=== PATIENT | female | born 1995 | race Caucasian/White ===

== ENCOUNTER 2018-01-18 20:35 | Emergency (ER) | payer OTHER ==
[~2018-01-18] VITALS: Ht 160 cm; Wt 65.0 kg
[~2018-01-18 20:35] MED LIST: Z.0.BCPILL PO; ZOFR4TAB3 SL
[2018-01-18] MEDS ORDERED: IOHEXOL 350 MG/ML 10 ML VIAL (for RAD DIAG) IVCONTRAST ONE (20:36)
[2018-01-18 20:47] VITALS: BP 128/88; PULSE 77; RESP 16; O2SAT 100
--- NOTE | 2018-01-18 22:08 | PD ---
HPI Chief Complaint: Complaint Time Seen by Provider: 21:47 Travel History International Travel<30 days: No Contact w/Intl Traveler<30days: No Traveled to known affect area: No History of Present Illness HPI 22-year-old female complains of abdominal pain, nausea and dysuria. Patient states that she started having abdominal cramping with nausea for the past 2 weeks. Patient states that his symptom has been intermittent. Patient started having dysuria for the past week. Patient was seen by personal physician 3 days ago and was given prescription for Cipro to be taken twice a day for possible UTI. Patient has an order for ultrasound of the abdomen pending next week. Patient states that the abdominal pain is cramping pain and sharp pain diffuse over the abdomen especially epigastric and lower abdomen. Patient denies any pain radiation. Patient complained of bilateral flank pain and low back pain. Patient denies any vaginal discharge or bleeding. Patient has history of kidney injury in the past and was admitted to intensive care in 2013. Patient states that she had no problems since then. PFSH Past Medical History Cancer: No Diabetes: No Diminished Hearing: No Hepatitis: No Hiatal Hernia: No Immunizations Current: Yes Thyroid Disease: No ?: Not Past Surgical History Other Surgery: Yes (RIGHT BREAST TUMOR) Social History Alcohol Use: No Tobacco Use: No Substance Use: No Allergies-Medications (Allergen,Severity, Reaction): Coded Allergies: No Known Allergies (Unverified Allergy, Unknown, 01/18/18) Reported Meds & Prescriptions Reported Meds & Active Scripts Active Zofran ODT (Ondansetron HCl) 4 Mg Tab 4 Mg SL Q6 FOR NAUSEA/VOMITING Reported Control Pills (Miscellaneous Medication) Tab 1 Tab PO DAILY Review of Systems General / Constitutional: No: Fever Eyes: No: Visual changes HENT: No: Headaches Cardiovascular: No: Chest Pain or Discomfort Respiratory: No: Shortness of Breath Gastrointestinal: Positive: Nausea, Abdominal Pain Genitourinary: Positive: Dysuria Musculoskeletal: No: Pain Skin: No Rash Neurologic: No: Weakness Psychiatric: No: Depression Endocrine: No: Polydipsia Hematologic/Lymphatic: No: Easy Bruising Physical Exam Narrative GENERAL: Well-nourished, well-developed patient. SKIN: Focused skin assessment warm/dry. HEAD: Normocephalic. EYES: No scleral icterus. No injection or drainage. NECK: Supple, trachea midline. No JVD or lymphadenopathy. CARDIOVASCULAR: Regular rate and rhythm without murmurs, gallops, or rubs. RESPIRATORY: Breath sounds equal bilaterally. No accessory muscle use. GASTROINTESTINAL: Abdomen soft, nondistended. Patient has moderate tenderness on palpation epigastric and lower abdomen. No rebound tenderness. No mass. MUSCULOSKELETAL: No cyanosis, or edema. BACK: Patient has moderate tenderness diffuse over the left lower bilateral flank area and lower back area. Neurologic exam normal. Data Data Last Documented VS Vital Signs Date Time Temp Pulse Resp B/P (MAP) Pulse Ox O2 Delivery O2 Flow Rate FiO2 01/18/18 20:47 77 16 128/88 (101) 100 Room Air Orders Orders Complete Blood Count With Diff (01/18/18 22:00) Comprehensive Metabolic Panel (01/18/18 22:00) Lipase (01/18/18 22:00) Urinalysis - C+S If Indicated (01/18/18 22:00) Ct Abd/Pel W Iv Contrast(Rout) (01/18/18 22:00) Iv Access Insert/Monitor (01/18/18 22:00) Ecg Monitoring (01/18/18 22:00) Oximetry (01/18/18 22:00) Ed Urine Pregnancytest Poc (01/18/18 22:05) Iohexol 350 Inj (Omnipaque 350 Inj) (01/18/18 20:36) Labs Laboratory Tests Test 01/18/18 22:14 White Blood Count 8.8 TH/MM3 Red Blood Count 4.53 MIL/MM3 Hemoglobin 12.7 GM/DL Hematocrit 37.9 % Mean Corpuscular Volume 83.6 FL Mean Corpuscular Hemoglobin 28.0 PG Mean Corpuscular Hemoglobin Concent 33.4 % Red Cell Distribution Width 13.2 % Platelet Count 289 TH/MM3 Mean Platelet Volume 9.5 FL Neutrophils (%) (Auto) 53.1 % Lymphocytes (%) (Auto) 36.6 % Monocytes (%) (Auto) 7.7 % Eosinophils (%) (Auto) 2.2 % Basophils (%) (Auto) 0.4 % Neutrophils # (Auto) 4.7 TH/MM3 Lymphocytes # (Auto) 3.2 TH/MM3 Monocytes # (Auto) 0.7 TH/MM3 Eosinophils # (Auto) 0.2 TH/MM3 Basophils # (Auto) 0.0 TH/MM3 CBC Comment DIFF FINAL Differential Comment Urine Color LIGHT-YELLOW Urine Turbidity HAZY Urine pH 6.5 Urine Specific [place] 1.018 Urine Protein NEG mg/dL Urine Glucose (UA) NEG mg/dL Urine Ketones NEG mg/dL Urine Occult Blood NEG Urine Nitrite NEG Urine Bilirubin NEG Urine Urobilinogen LESS THAN 2.0 MG/DL Urine Leukocyte Esterase TRACE Urine RBC 1 /hpf Urine WBC 1 /hpf Urine Squamous Epithelial Cells 10 /hpf Microscopic Urinalysis Comment CULT NOT INDICATED Blood Urea Nitrogen 15 MG/DL Creatinine 0.73 MG/DL Random Glucose 84 MG/DL Total Protein 6.8 GM/DL Albumin 3.8 GM/DL Calcium Level 8.8 MG/DL Alkaline Phosphatase 70 U/L Aspartate Amino Transf (AST/SGOT) 17 U/L Alanine Aminotransferase (ALT/SGPT) 22 U/L Total Bilirubin 0.6 MG/DL Sodium Level 142 MEQ/L Potassium Level 3.8 MEQ/L Chloride Level 108 MEQ/L Carbon Dioxide Level 26.4 MEQ/L Anion Gap 8 MEQ/L Estimat Glomerular Filtration Rate 101 ML/MIN Lipase 127 U/L [facility] Medical Decision Making Medical Screen Exam Complete: Yes Emergency Medical Condition: Yes Interpretation(s) Last Impressions Abdomen/Pelvis CT 01/18/180 Signed Impressions: Service Date/Time: Thursday, January 18, 2018 23:04 - CONCLUSION: 1. No acute findings. Probable 2.3 cm corpus luteum cyst left adnexa. Trace free fluid in the pelvis. Gerry Wright MD 23:52 PM. CBC within normal limits. CMP within normal limits. UA is negative. Differential Diagnosis Differential diagnosis including gastritis, PUD, pancreatitis, cholecystitis, colitis, UTI, pyelonephritis, nephrolithiasis. Narrative Course 22-year-old female with abdominal pain and back pain. Patient had dysuria and was treated with Cipro. Protonix 40 mg p.o. given. 10 cc p.o. given. Maalox 30 cc p.o. given. Diagnosis Primary Impression: Gastritis Qualified Codes: K29.00 - Acute gastritis without bleeding Additional Impression: Abdominal colic Patient Instructions: General Instructions Additional Instructions: Take medication as directed. Follow-up with personal physician and respiratory care faculty. Return if worse. Med/Other Pt SpecificInfo: Prescription(s) given Scripts Dicyclomine (Bentyl) 10 Mg Cap 10 MG PO TID Y for Bowel Management, #30 CAP 0 Refills Prov: Nilson Arora MD 01/19/18 Sucralfate (Carafate) 1 Gram Tab 1 GM PO QID for Ulcer Prevention, #120 TAB 0 Refills On empty stomach Prov: Nilson Arora MD 01/19/18 Pantoprazole (Protonix) 40 Mg Tab 40 MG PO DAILY for Reflux, #30 TAB 0 Refills Prov: Nilson Arora MD 01/19/18 Disposition: 01 DISCHARGE HOME Condition: Stable Nilson Arora MD Jan 18, 2018 22:08
[2018-01-18 22:27] LABS: AUTOMATED NEUTROPHIL # 4.7 TH/MM3 (1.8-7.7); BASOPHIL % 0.4 % (0.0-2.0); EOSINOPHIL # 0.2 TH/MM3 (0-0.4); EOSINOPHIL % 2.2 % (0.0-4.0); HEMATOCRIT 37.9 % (35.0-46.0); HEMOGLOBIN 12.7 GM/DL (11.6-15.3); LYMPH % 36.6 % (9.0-44.0); LYMPHOCYTE # 3.2 TH/MM3 (1.0-4.8); MEAN CELL VOLUME 83.6 FL (80.0-100.0); MEAN CORPUSCULAR HGB CONC 33.4 % (32.0-36.0); MEAN PLATELET VOLUME 9.5 FL (7.0-11.0); MONO % 7.7 % (0.0-8.0); MONOCYTE # 0.7 TH/MM3 (0-0.9); NEUT % 53.1 % (16.0-70.0); PLATELET COUNT 289 TH/MM3 (150-450); RED BLOOD COUNT 4.53 MIL/MM3 (4.00-5.30); RED CELL DISTRIBUTION WIDTH 13.2 % (11.6-17.2); WHITE BLOOD COUNT 8.8 TH/MM3 (4.0-11.0)
[2018-01-18 22:32] LABS: BILIRUBIN, URINE NEG (NEG); BLOOD, URINE NEG (NEG); GLUCOSE,URINE NEG (NEG); KETONE, URINE NEG (NEG); NITRITE,URINE NEG (NEG); PH, URINE 6.5 (5.0-8.5); SQUAMOUS EPITHELIAL CELL URINE 10 /hpf (0-5); URINE COLOR LIGHT-YELLOW (YELLW/STRAW); URINE LEUKOCYTE ESTERASE TRACE (NEG)
[2018-01-18 22:49] LABS: ALBUMIN 3.8 GM/DL (3.4-5.0); AST (GOT) 17 U/L (15-37); BICARBONATE 26.4 MEQ/L (21.0-32.0); BLOOD UREA NITROGEN 15 MG/DL (7-18); CALCIUM 8.8 MG/DL (8.5-10.1); CHLORIDE 108 MEQ/L (98-107); CREATININE 0.73 MG/DL (0.50-1.00); GLOMERULAR FILTRATION RATE 101 ML/MIN (>89); GLUCOSE,RANDOM 84 MG/DL (74-106); SODIUM (NA) 142 MEQ/L (136-145)
[2018-01-18 22:51] LABS: ALKALINE PHOSPHATASE 70 U/L (45-117); ALT (GPT) 22 U/L (10-53); TOTAL BILIRUBIN ADULT 0.6 MG/DL (0.2-1.0); TOTAL PROTEIN 6.8 GM/DL (6.4-8.2)
--- NOTE | 2018-01-18 23:30 | RADRPT ---
EXAM DATE/TIME: 01/18/2018 23:04 [facility] COMPARISON: No previous studies available for comparison. INDICATIONS : Abdomen and back pain past 2 weeks. IV CONTRAST: 95 cc Omnipaque 350 (iohexol) IV ORAL CONTRAST: No oral contrast ingested. RADIATION DOSE: 6.94 CTDIvol (mGy) MEDICAL HISTORY : None SURGICAL HISTORY : None. ENCOUNTER: Initial ACUITY: 2 weeks PAIN SCALE: 6/10 LOCATION: Bilateral abdomen and back TECHNIQUE: Volumetric scanning of the abdomen and pelvis was performed. Using automated exposure control and ad justment of the mA and/or kV according to patient size, radiation dose was kept as low as reasonably achievable to obtain optimal diagnostic quality images. DICOM format image data is available electro nically for review and comparison. FINDINGS: LOWER LUNGS: The visualized lower lungs are clear. LIVER: Homogeneous density without lesion. There is no dilation of the biliary tree. No calcified gallston es. SPLEEN: Normal size without lesion. PANCREAS: Within normal limits. KIDNEYS: Normal in size and shape. There is no mass, stone or hydronephrosis. ADRENAL GLANDS: Within normal limits. VASCULAR: There is no aortic aneurysm. BOWEL/MESENTERY: The stomach, small bowel, and colon demonstrate no acute abnormality. There is no free intraperitone al air or fluid. ABDOMINAL WALL: Within normal limits. RETROPERITONEUM: There is no lymphadenopathy. BLADDER: No wall thickening or mass. REPRODUCTIVE: 2.3 cm complex cyst left adnexa, probably a corpus luteum cyst. Trace free fluid in the pelvis. INGUINAL: There is no lymphadenopathy or hernia. MUSCULOSKELETAL: Within normal limits for patient age. CONCLUSION: 1. No acute findings. Probable 2.3 cm corpus luteum cyst left adnexa. Trace free fluid in the pelvis. Gerry Wright MD on January 18, 2018 at 23:24 Board Certified Radiologist. This report was verified electronically.
[2018-01-19] MEDS ORDERED: PROT40TA PO (00:01)
[2018-01-19] MEDS ORDERED: CARA1TAB6 PO (00:01)
[2018-01-19] MEDS ORDERED: DICY10 PO (00:01)
[2018-01-19] MEDS ORDERED: ATROPINE/SCOPOLAM/HYOSCYAM/PB ELIXIR 10 ML CUP PO ONE (00:15)
[2018-01-19] MEDS ORDERED: ALUMINUM/MAGNESIUM/SIMETH 30 ML CUP PO ONE (00:15)
[2018-01-19] MEDS ORDERED: PANTOPRAZOLE SOD 40 MG DELAYED RELEASE TAB PO ONE (00:15)
== END 2018-01-19 00:34 | disposition home or self-care (01) ==
LOC: NEPE 20:35
DX: K29.00 Acute gastritis without bleeding (principal); R10.84 Generalized abdominal pain; N85.8 Other specified noninflammatory disorders of uterus
CPT/HCPCS: 74177; 80053; 81001; 83690; 84703; 85025; 99284; Q9967